=== PATIENT | female | born 1990 | race Caucasian/White ===

== ENCOUNTER 2024-02-21 09:33 | Emergency (ER) | payer OTHER, SELFPAY ==
[2024-02-21 09:47] VITALS: BP 102/65; PULSE 84; RESP 18; TEMP 36.8; O2SAT 100
--- NOTE | 2024-02-21 10:00 | ED.SKABFB ---
HPI - Skin/Abscess/Foreign Bdy General Chief complaint: Skin/Abscess/Foreign Body Stated complaint: leg rashes Time Seen by Provider: 02/21/24 10:00 Source: patient Mode of arrival: ambulatory Limitations: no limitations History of Present Illness HPI narrative: 33-year-old female presents with complaint Of itchy bug bites to bilateral legs and a few to forearms. has been applying [id number] hydrocortisone cream with no relief itching. Patient states she is outdoors often with her kids. Could be triggered bite. Denies use of any new products. Did get a massage 3 days prior to itching starting But has been to this facility in the past. All systems reviewed and negative except as noted above. Related Data Allergies Allergy/AdvReac Type Severity Reaction Status Date / Time No Known Allergies Allergy Verified 02/21/24 10:21 Review of Systems Review of Systems: CONSTITUTIONAL: Denies fever, chills, or sweats. EYES: Denies visual changes, redness, or discharge. ENT: Denies rhinorrhea, congestion, sore throat, or otalgia. CARDIOVASCULAR: Denies chest pain, palpitations, or edema. RESPIRATORY: Denies cough or dyspnea. GASTROINTESTINAL: Denies abdominal pain, nausea, vomiting, or diarrhea. GENITOURINARY: Denies dysuria or hematuria. SKIN: Reports itchy bug bites. MUSCULOSKELETAL: Denies back pain, joint pain, or myalgia. NEUROLOGIC: Denies headache, numbness, or weakness. PSYCHIATRIC: Denies anxiety or depression. All other systems reviewed are negative, except as documented in HPI. PMFSH Comments At time of signature, agree with nursing past medical, surgical, social and family history. There is no relevant family history pertinent to the presenting complaint. Exam Narrative: GENERAL: This is a well-nourished, well-developed patient, in no apparent distress. HEAD: normocephalic, atraumatic. EYES: PERRL. Sclera clear/white. Vision is grossly intact. EARS: External ears normal NOSE: External nose normal NECK: Neck supple, non-tender without lymphadenopathy, masses or thyromegaly. CARDIOVASCULAR: Regular rate and rhythm without murmurs, gallops, or rubs. RESPIRATORY: Clear to auscultation. Breath sounds equal bilaterally. No wheezes, rales, or rhonchi. SKIN: warm, Dry, intact with no suspicious lesions or rash, good texture and turgor. 20+ erythematous papules to bilateral lower extremities, mid thigh down to feet. only a few erythematous papules to bilateral forearms, 5-6. NEURO: awake, alert, and oriented to person, place and time. There were no obvious focal neurologic abnormalities. EXTREMITIES: No joint tenderness, effusion, or edema noted. Course Course Level of Care: Express Care Visit Vital Signs Vital signs: Vital Signs Temperature 36.8 C 02/21/24 09:47 Pulse Rate 84 02/21/24 09:47 Respiratory Rate 18 02/21/24 09:47 Blood Pressure 102/65 02/21/24 09:47 Pulse Oximetry 100 02/21/24 09:47 Oxygen Delivery Room Air 02/21/24 09:47 Temperature 36.8 C 02/21/24 09:47 Pulse Rate 84 02/21/24 09:47 Respiratory Rate 18 02/21/24 09:47 Blood Pressure 102/65 02/21/24 09:47 Pulse Oximetry 100 02/21/24 09:47 Oxygen Delivery Room Air 02/21/24 09:47 Reviewed MDM - Skin/Abscess/Foreign Bdy MDM Narrative Medical decision making narrative: insect bites most likely sugars. We did discuss possible scabies, but this is less likely. will treat with Prednisone, triamcinolone, hydroxyzine. Patient agrees with plan of care. Patient is aware of diagnosis, understands and agrees to treatment plan. Anticipatory guidance given. Patient agrees to follow-up as directed and is aware of reasons to seek care at the emergency department. Portions of this record may have been created with voice recognition software Differential Diagnosis Differential diagnosis: Likely insect bites Discharge Plan Discharge Clinical Impression: benjie Shipley
== END 2024-02-21 10:16 | disposition home or self-care (01) ==
PROVIDERS: Emergency Provider Nurse Practitioner Family
DX: B88.0 Other acariasis (principal)
CPT/HCPCS: 99203; G0463